=== PATIENT | female | born 1960 | race Caucasian/White ===

== ENCOUNTER 2024-11-06 11:47 | Emergency (ER) | payer MEDICAID, OTHER ==
[~2024-11-06] VITALS: Ht 162.6 cm; Wt 80.0 kg
[2024-11-06 11:50] VITALS: O2SAT 98
[2024-11-06] MEDS: SODIUM CHLORIDE 0.9% 1,000 ML IV ONE (12:30)
[2024-11-06 12:50] LABS: BASOPHILS % 1.1 % (0.0-2.0); EOSINOPHILS % 0.6 % (0.0-5.0); HEMATOCRIT. 37.8 % (36.0-48.0); HEMOGLOBIN. 11.8 g/dL (12.0-16.0); LYMPHOCYTES % 19.8 % (20.0-50.0); MEAN CORPUSCULAR HEMOGLOBIN 25.1 pg (28.0-32.0); MEAN CORPUSCULAR HGB CONC 31.1 g/dL (31.0-37.0); MEAN CORPUSCULAR VOLUME 80.6 fL (81.0-99.0); MEAN PLATELET VOLUME 8.9 fl (7.4-10.4); MONOCYTES % 6.2 % (2.0-8.0); NEUTROPHILS % 72.3 % (40.0-76.0); PLATELET 315 x1000/uL (130-400); RED BLOOD CELL COUNT 4.69 mill/uL (4.2-5.4); RED CELL DISTRIBUTION WIDTH 15.6 % (11.6-14.6); WHITE BLOOD COUNT 9.4 x1000/uL (4.5-11.0)
[2024-11-06 12:59] LABS: CHLORIDE 105 mEq/L (98-107); POTASSIUM 3.9 mEq/L (3.5-5.1); SODIUM 138 mEq/L (136-145)
[2024-11-06 13:00] LABS: CARBON DIOXIDE 24 mEq/L (21-32)
[2024-11-06] MEDS ORDERED: MECLIZINE 25MG TABLET PO ONE (13:00)
[2024-11-06] MEDS ORDERED: ONDANSETRON HCL 4MG/2ML INJ IV ONE (13:00)
[2024-11-06 13:01] LABS: CALCIUM 9.6 mg/dL (8.7-10.4)
[2024-11-06 13:02] LABS: PARTIAL THROMBOPLASTIN TIME 23.2 sec (23.4-31.0); PROTHROMBIN TIME 10.7 sec (9.6-11.0)
[2024-11-06 13:05] LABS: CREATININE 0.7 mg/dL (0.6-1.0)
[2024-11-06 13:06] LABS: GLUCOSE 196 mg/dL (70-105); UREA NITROGEN BLOOD 15 mg/dL (9-23)
[2024-11-06 13:07] LABS: ALANINE AMINOTRANSFERASE 17 IU/L (10-49); ASPARTATE AMINOTRANSFERASE 26 IU/L (<34)
[2024-11-06 13:08] LABS: BILIRUBIN DIRECT 0.1 mg/dL (<=3.0); BILIRUBIN TOTAL 0.5 mg/dL (0.1-1.0); PROTEIN TOTAL 7.4 g/dL (6.0-8.3)
[2024-11-06 14:08] LABS: TROPONIN I HIGH SENSITIVITY < 4 ng/L (3.0-34)
[2024-11-06] MEDS: MECLIZINE 25MG TABLET PO NR (14:33)
[2024-11-06] MEDS: ONDANSETRON HCL 4MG/2ML INJ IV NR (14:33)
[2024-11-06 14:57] LABS: CLARITY URINE CLOUDY (CLEAR); COLOR URINE YELLOW (YELLOW); GLUCOSE URINE NEGATIVE (NEGATIVE); KETONES URINE 1+ (NEGATIVE); LEUKOCYTE ESTERASE URINE 1+ (NEGATIVE); NITRITE URINE NEGATIVE (NEGATIVE); OCCULT BLOOD URINE NEGATIVE (NEGATIVE); PROTEIN URINE 1+ (NEGATIVE); SPECIFIC GRAVITY URINE 1.025 (1.005-1.030)
[2024-11-06 15:23] LABS: SQUAMOUS EPITHELIAL CELL URINE 3+ /lpf (RARE/1+)
[2024-11-06 15:24] LABS: MUCUS URINE TRACE /lpf (< = 2+)
[2024-11-06 15:25] LABS: BACTERIA URINE 1+
[2024-11-06 15:26] LABS: RBC URINE 0-2 /hpf (0-2); WBC URINE 0-2 /hpf (0-2)
[2024-11-06] MEDS: CEFTRIAXONE 1GM/50ML 50 ML IV NR (15:37)
[2024-11-06] MEDS ORDERED: CEPH500C2 MT (15:42)
[2024-11-06 16:41] VITALS: BP 117/67; PULSE 76; RESP 18; TEMP 36.9; O2SAT 99
== END 2024-11-06 16:45 | disposition home or self-care (01) ==
LOC: ER 11:47 → CANBEDREQ 16:40 → ER 16:45
DX: N39.0 Urinary tract infection, site not specified (principal); R10.13 Epigastric pain; R42 Dizziness and giddiness; R53.1 Weakness; R11.2 Nausea with vomiting, unspecified; E11.9 Type 2 diabetes mellitus without complications
CPT/HCPCS: 99285; 74176; 96365; 76705; 71045; 96361; 96375; 80076; 80048; 81003; 83880; 83690; 85025; 85610; 85730; 84484; 36415; 93005; J0696; J2405; J7030